=== PATIENT | female | born 1985 | race Caucasian/White ===

== ENCOUNTER 2020-11-14 11:41 | Emergency (ER) | payer SELFPAY ==
[2020-11-14 12:04] VITALS: BP 112/77; PULSE 88; RESP 20; TEMP 36.7; O2SAT 99; BMI 49.1
--- NOTE | 2020-11-14 12:15 | HMH.EDUTC ---
[facility] [place] Disposition Clinical Impression: Low back strain Qualifiers: Encounter type: initial encounter Qualified Code(s): S39.012A - Strain of muscle, fascia and tendon of lower back, initial encounter Disposition: Home, Self-Care Condition on Discharge: Good Instructions: Low Back Pain, DI for Low Back Pain, Methocarbamol Additional Instructions: *Ibuprofen ana cristina 6 hours with meal as needed for pain/inflammation *Remember you had a Toradol shot in the clinic today, which is similar to Motrin *Not additional anti-inflammatory like motrin, aleve, advil with the above amount of ibuprofen. You can still take Tylenol every 4 hours as needed if you need something else for pain *Ice 20 minutes every 2 hours for the first 48 hours after the initial injury followed by moist heat every 20 minutes 3-4 times a day to affected area *Muscle relaxer every as prescribed as needed for muscle spasms but remember, it WILL cause drowsiness You cannot take it and drive, operate machinery or care for small children. *Keep this area active, no movement leads to more stiffness, However take it easy and avoid heavy lifting pushing or pulling *Follow up with you family doctor if no improvement for further treatment Prescriptions: Etodolac [Etodolac 200mg Cap*] 200 mg PO Q6H PRN #20 cap PRN Reason: Moderate Pain Transmission Status[facility] predniSONE [Prednisone 5mg Tab Dose-Pack] 5 mg PO UD DOSE PK #21 pack Transmission Status: Received by [facility] methocarbamoL [Robaxin 750mg Tab] 750 mg PO BID PRN #10 tab PRN Reason: Muscle Spasm Transmission Status: Received by [facility] Referrals: Yolanda Menendez MD [Primary Care Provider] - Time of Disposition: 13:04 Medical Decision Making - Richie Inquiry Pt receiving controlled substance: No Richie was queried for this patient: No Vital Signs: 11/14/20 12:04 11/14/20 13:03 Temperature 98.0 F 98.0 F Temperature Source Temporal Artery Scan Pulse Rate 88 Pulse Rate [Right Brachial] 88 Respiratory Rate 20 20 Blood Pressure 112/77 Blood Pressure [Right Arm] 112/77 Blood Pressure Mean [Right Arm] 88 Blood Pressure Source [Right Arm] Automatic Cuff Blood Pressure Position [Right Arm] Sitting 02 Sat by Pulse Oximetry 99 Oxygen Delivery Method Room Air - Lab Data Lab results reviewed: Yes: I reviewed the patient's lab results. Lab Results 11/14/20 12:06: [facility] Clinic Negative - Radiology Data #1 Image(s): L-Spine Image Reviewed: Yes I reviewed the patient's radiology image w/the ED provider Preliminary Findings: No Fracture Seen Medical Decision Narrative: Discussed Tordol shot and Solu Medrol and patient refused injections states that she will not take shots she will take oral medication [facility] HPI - General Stated complaint: low back pain, no accident Time Seen by Provider: 11/14/20 12:15 Mode of Arrival: Ambulatory Source of Information: Patient Limitations: No Limitations Description of Symptoms (Recalled from Triage Doc. by RN): PATIENT C/O MID LOWER BACK PAIN SINCE LAST NIGHT. STATES IT STARTED WHEN SHE WAS LIFTING HER CHILD HEENT Symptoms (Recalled from RN notes): No Resp Symptoms (Recalled from RN notes): No Skin Symptoms (Recalled from RN notes): No MS Symptoms (Recalled from RN notes): Yes Functional Status (Recalled from RN notes): WNL - History of Present Illness Provider Complaint: Patient state that she was lifting her child off the covers last night when she had a sharp pain in her back and felt like something pulled or popped' in her lower back State that ever since she has been having pain and muscle spasms in her lower back area States that it hurts when she tries to stand up straight States that she has had back problems before - Related Data Previous Rx's Medication Instructions Recorded Etodolac [Etodolac 200mg Cap*] 200 mg PO Q6H PRN #20 cap 11/14/20 methoca
[2020-11-14 12:23] LABS: UTC Pregnancy Test, Urine Negative (Negative)
--- NOTE | 2020-11-14 12:23 | XR_ITS ---
PROCEDURE: XR LUMBAR SPINE 2-3V CLINICAL INDICATION: PAIN COMPARISON: No exams were available for comparison FINDINGS: No fracture or dislocation. No lytic or blastic change. There is normal mineralization. The joint spaces are well-preserved. No significant degenerative/arthritic changes. No erosive changes evident. Other findings:None. IMPRESSION: No acute findings. Dictated by: Kemal Mack MD 11/14/2020 13:26 Kemal Mack MD in [place] 11/14/2020 13:26
[2020-11-14 13:03] VITALS: BP 112/77; PULSE 88; RESP 20; TEMP 36.7; O2SAT 99
== END 2020-11-14 13:05 | disposition home or self-care (01) ==
PROVIDERS: Emergency Provider Nurse Practitioner; PCP Family Medicine
DX: S39.012A Strain of muscle, fascia and tendon of lower back, initial encounter (principal); X50.0XXA Overexertion from strenuous movement or load, initial encounter; Y92.019 Unspecified place in single-family (private) house as the place of occurrence of the external cause
CPT/HCPCS: 72100; 81025; 99202; G0463